=== PATIENT | female | born 1985 | race Caucasian/White ===

== ENCOUNTER 2016-04-18 00:22 | Emergency (ER) | payer OTHER ==
[~2016-04-18] VITALS: Ht 170.2 cm; Wt 59.1 kg
[2016-04-18 00:31] VITALS: TEMP 98.2
[2016-04-18] MEDS ORDERED: ZYRTEC 10MG10 MG PO (00:54)
[2016-04-18] MEDS ORDERED: NATURAL IRON65 MG PO (00:55)
[2016-04-18] MEDS ORDERED: PRENATAL1 TA7 PO (00:55)
[2016-04-18 01:10] LABS: BASO # 0.1 (0.0-0.2); BASO % 0.5 % (0.0-2.0); EOS # 0.2 (0.0-0.7); EOS % 1.8 % (0-4.0); GRAN # 5.4 (1.4-6.5); GRAN % 59.6 % (42.2-75.2); HEMOGLOBIN 12.1 g/dl (12.5-16.0); LYMPH # 2.8 (1.2-3.4); MEAN CELL VOLUME 88 fl (80.0-100.0); MEAN CORPUSCULAR HEMOGLOBIN 29 pg (27.0-31.0); MEAN CORPUSCULAR HGB CONC 33 g/dl (33.0-37.0); MEAN PLATELET VOLUME 8.4 fl (7.4-10.4); MONO # 0.6 (0.1-0.6); MONO % 6.9 % (1.7-9.3); PLATELET COUNT 285 K/mm3 (130-400); RED BLOOD COUNT 4.16 M/mm3 (4.10-5.30); REDCELL DISTRIBUTION WIDTH-CV 12.2 % (11.5-14.5); WHITE BLOOD COUNT 9.1 K/mm3 (4.8-10.8)
[2016-04-18 01:29] LABS: HEMATOCRIT 36.6 % (37.0-47.0)
[2016-04-18 05:26] VITALS: BP 122/80; PULSE 90
== END 2016-04-18 05:27 | disposition home or self-care (01) ==
LOC: COL.ER 00:22
PROVIDERS: Emergency Medicine
DX: O03.9 Complete or unspecified spontaneous abortion without complication (principal)